=== PATIENT | male | born 1955 | race Caucasian/White ===

== ENCOUNTER 2019-09-20 12:30 | Inpatient (IN) ==
[2019-09-20 13:41] LABS: BASO# 0.12 X1000 (0.0-0.2); BASO% 1.5 % (0.0-0.8); EOS# 0.42 X1000 (0.0-0.7); EOS% 5.1 % (0.0-10.0); HEMATOCRIT 50.4 % (42.0-52.0); HEMOGLOBIN 16.6 g/dL (14.0-18.0); IMM GRAN# 0.02 X1000 (0.0-0.04); IMM GRAN% 0.2 % (0.0-0.5); LYMPH# 2.94 X1000 (1.2-3.4); LYMPH% 35.9 % (20.5-51.1); MCHC 32.9 g/dL (33-37); MCV 85.1 FL (81-99); MONO# 0.68 X1000 (0.11-0.59); MONO% 8.3 % (1.7-9.3); MPV 10.5 FL (7.4-10.4); NEUT# 4.02 X1000 (1.4-6.5); PLT 326 X1000 (130-400); RBC 5.92 XMIL (4.7-6.1); RDW 14.3 % (11.5-14.5)
--- NOTE | 2019-09-20 13:45 | Diag Imaging Result Doc PS360 ---
EXAM: CHEST-PORTABLE HISTORY: CP/SOB TECHNIQUE: Single view COMPARISON: None. FINDINGS: The lungs are well expanded. The heart is not enlarged. Mild central vascular prominence. There are no infiltrates. No effusion identified. IMPRESSION: Mild central vascular prominence. Electronically signed by Tunde Schultz 09/20/2019 1:43 PM
[2019-09-20 14:38] LABS: ALB/GLOB RATIO 1.6; ALBUMIN 4.1 g/dL (3.5-5.0); CALCIUM 8.9 mg/dL (8.8-10.2); CREATININE 1.5 mg/dL (0.7-1.2); POTASSIUM 3.9 mmol/L (3.5-5.1); TOTAL BILIRUBIN 0.48 mg/dL (0.20-1.00); TOTAL PROTEIN 6.6 g/dL (6.3-8.3)
[2019-09-20 16:09] LABS: URINE SOURCE VOIDED
[2019-09-20 16:15] LABS: BILIRUBIN URINE NEGATIVE (NEGATIVE); BLOOD URINE NEGATIVE (NEGATIVE); COLOR YELLOW; GLUCOSE URINE NEGATIVE (NEGATIVE); KETONE URINE NEGATIVE (NEGATIVE); LEUKOCYTES URINE NEGATIVE (NEGATIVE); NITRITE URINE NEGATIVE (NEGATIVE); PROTEIN URINE TRACE mg/dL (NEGATIVE); SP GRAVITY URINE 1.016; TURBIDITY URINE CLEAR (CLEAR); UROBILINOGEN URINE NORMAL (NORMAL)
[2019-09-20 16:16] LABS: UR EPITHELIAL CELLS <10 /HPF (<10); URINE BACTERIA NEGATIVE /HPF; URINE RBC <10 /HPF (<10); URINE WBC <10 /HPF (<10)
[2019-09-20] MEDS ORDERED: NITROGLYCERIN LINGUAL SPRAY SL PRN (17:40)
--- NOTE | 2019-09-20 17:55 | PROVIDER DOCUMENTATION ---
This chart was entered by Honey Strong Scribe, acting as scribe for Flaquito Lonodn MD. HPI-Chest Pain - General Chief Complaint: Chest Pain Stated Complaint: CHEST PAIN Time Seen by Provider: 09/20/19 12:46 Source: patient Allergies/Adverse Reactions: Patient Allergies Allergy/AdvReac Type Severity Reaction Status Date / Time Penicillins AdvReac Unknown Verified 09/20/19 13:12 Home Medications: Home Medication List Medication Instructions Recorded Confirmed Last Taken Type Unobtainable [Home Meds 09/20/19 09/20/19 Unknown History Unobtainable] - History of Present Illness-CP Nature of Presenting Problem: 64 y/o male presents to ED with sharp, non-radiating, sternal chest pain, weakness, nausea, headache, SOB, earaches, palpitations, and cramping abdominal pain onset 1 week ago. Pt denies pain at this time. Pt reports sometimes his pain lasts all day and sometimes just a few minutes. Pt states he was told a while ago that he had a 70% blockage in one coronary artery and 40% blockage in another, but he has not followed up. Pt reports just talking makes him feel short of breath. Pt is alert and oriented. Location: reports: central Chest Pain Radiation: reports: no radiation Quality of Pain: reports: sharp Severity in ED: moderate Onset/Duration: 1 week ago Timing: gone now, intermittent Context/Activities at Onset: reports: none Modifying Factors: improves with: nothing Associated Symptoms: reports: abdominal pain, headache, nausea, shortness of breath, weakness Nitro Today/Relief: no nitro taken today Aspirin Treatment Today: no aspirin today Prior Chest Pain/Cardiac Workup: reports: cardiac cath Similar Symptoms Previously?: No Recently Seen Here or By Another Healthcare Provider: No Review of Systems - Adult - REVIEW OF SYSTEMS - ADULT Constitutional: denies: chills, fever Eyes: reports: no symptoms reported Ears, Nose, Mouth & Throat: reports: ear pain. denies: epistaxis Cardiovascular: reports: chest pain, palpitations Respiratory: reports: shortness of breath. denies: cough Gastrointestinal: reports: abdominal pain, nausea. denies: diarrhea, vomiting Genitourinary: reports: no symptoms reported Musculoskeletal: reports: no symptoms reported Integumentary: reports: no symptoms reported Neurological: reports: headache/migraines, other (weakness). denies: dizziness/vertigo, seizure Psychiatric: reports: no symptoms reported Endocrine: reports: no symptoms reported Hematologic/Lymphatic: reports: no symptoms reported Allergic/Immunologic: reports: no symptoms reported All Other Systems: Reviewed and Negative Past History - Adult - PAST MEDICAL HISTORY-ADULT Review of Records: reports: Old Records Reviewed, Nursing Assessment Review, Medications Reviewed Major Childhood Illnesses: reports: denies history Cardiovascular: reports: CAD, HTN Neurological: reports: TIA Endocrine/Immune: reports: Diabetes Other Conditions: reports: MRSA - PRIOR SURGERIES/PROCEDURES Surgical/Procedure History: reports: orthopedic (extremity) (rotator cuff), back/neck - IMMUNIZATION STATUS Childhood Immunizations: See Nurse Assessment Flu Vaccine: See Nurse Assessment - FAMILY HISTORY Family History: reviewed, not pertinent - SOCIAL HISTORY Smoking: greater than 1 pack/day Provider spent 3-5 mins advising pt. on dangers of tobacco.: Discussed manners to quit use, and f/u contacts for add'l counseling. Substance Use: none/never Alcohol Use Frequency: never Living Situation: family Physical Exam-General - PHYSICAL EXAM-ADULT Initial Vital Signs Reviewed: Yes - CONSTITUTIONAL General Appearance: appears well, alert, no apparent distress - EYES Eyes: PERRL/EOMI, pink conjunctivae - HEAD, EARS, NOSE, MOUTH & THROAT HENMT: normocephalic/atraumatic, moist mucous membranes, normal ENT inspection - NECK Neck: non-tender, full range of motion - RESPIRATORY Respiratory: chest non-tender, lungs clear, normal breath sounds - CARDIOVASCULAR Cardiovascular: normal peripheral pulses, regular rate, rhythm - GASTROINTESTINAL (ABDOMEN) Abdominal Exam: normal bowel sounds, soft, tenderness (midline abdominal tenderness) - MUSCULOSKELETAL Back Exam: normal inspection, no CVA tenderness, no vertebral tenderness Extremity: normal range of motion, swelling (R great toe), tenderness (at the plantar base of the R great toe) - SKIN Integumentary: normal color, warm/dry - NEUROLOGIC Neurologic: grossly normal - PSYCHIATRIC Psych/Mental Status: normal mood/affect, normal thought content, normal thought process, oriented x 3 - HEART Score HEART Score: History: Slightly Suspicious HEART Score: ECG: Normal HEART Score: Age: 45-65 Years HEART Score: Risk Factors for Atherosclerotic Disease: > or = 3 Risk Factors or History of Atherosclerotic Disease HEART Score: Troponin: < or = Normal Limit Total HEART Score:: 3 Progress - PLAN OF CARE/RESULTS Progress/Plan/Lab Results: Vital Signs - 8 hr 09/20/19 12:43 09/20/19 13:04 09/20/19 13:30 Temperature 98.0 F Pulse Rate 73 64 Respiratory Rate 18 14 Blood Pressure 172/94 157/93 O2 Sat by Pulse Oximetry 96 99 09/20/19 14:00 09/20/19 15:01 09/20/19 15:31 Temperature Pulse Rate 61 60 61 Respiratory Rate 34 H 23 22 Blood Pressure 154/86 142/84 O2 Sat by Pulse Oximetry 97 97 95 Laboratory Results - last 24 hr 09/20/19 09/20/19 09/20/19 13:00 14:11 14:11 WBC 8.20 RBC 5.92 Hgb 16.6 Hct 50.4 MCV 85.1 MCH 28.0 MCHC 32.9 L RDW Std Deviation 14.3 Plt Count 326 MPV 10.5 H Immature Gran % (Auto) 0.2 Neut % (Auto) 49.0 Lymph % (Auto) 35.9 [place] % (Auto) 8.3 Eos % (Auto) 5.1 Baso % (Auto) 1.5 H Immature Gran # (Auto) 0.02 Neut # (Auto) 4.02 Lymph # (Auto) 2.94 [place] # (Auto) 0.68 H Eos # (Auto) 0.42 Baso # (Auto) 0.12 Sodium 141 Potassium 3.9 Chloride 105 Carbon Dioxide 22 L Anion Gap 14 BUN 21 Creatinine 1.5 H Estimated GFR/1.73 m2 47 BUN/Creatinine Ratio 14 Glucose 87 Calculated Osmolality 284 Calcium 8.9 Total Bilirubin 0.48 AST 13 ALT 16 Alkaline Phosphatase 112 Troponin T < 0.010 Xji-Q-Vumywclojnt Pept Total Protein 6.6 Albumin 4.1 Globulin 2.5 Albumin/Globulin Ratio 1.6 Amylase 59 Lipase 51 Urine Source Urine Color Urine Turbidity Urine pH Ur Specific [place] Urine Protein Ur Glucose (Stick) Ur Ketones (Stick) Urine Blood Urine Nitrite Urine Bilirubin Urobilinogen Dipstick Urine Leukocytes Urine WBC (Auto) Urine RBC (Auto) U Epithel Cells (Auto) Urine Bacteria (Auto) 09/20/19 09/20/19 09/20/19 14:11 15:40 16:17 WBC RBC Hgb Hct MCV MCH MCHC RDW Std Deviation Plt Count MPV Immature Gran % (Auto) Neut % (Auto) Lymph % (Auto) [place] % (Auto) Eos % (Auto) Baso % (Auto) Immature Gran # (Auto) Neut # (Auto) Lymph # (Auto) [place] # (Auto) Eos # (Auto) Baso # (Auto) Sodium Potassium Chloride Carbon Dioxide Anion Gap BUN Creatinine Estimated GFR/1.73 m2 BUN/Creatinine Ratio Glucose Calculated Osmolality Calcium Total Bilirubin AST ALT Alkaline Phosphatase Troponin T < 0.010 Cqj-M-Acjykkattpz Pept 90 Total Protein Albumin Globulin Albumin/Globulin Ratio Amylase Lipase Urine Source VOIDED Urine Color YELLOW Urine Turbidity CLEAR Urine pH 6.0 Ur Specific [place] 1.016 Urine Protein TRACE A Ur Glucose (Stick) NEGATIVE Ur Ketones (Stick) NEGATIVE Urine Blood NEGATIVE Urine Nitrite NEGATIVE Urine Bilirubin NEGATIVE Urobilinogen Dipstick NORMAL Urine Leukocytes NEGATIVE Urine WBC (Auto) <10 Urine RBC (Auto) <10 U Epithel Cells (Auto) <10 Urine Bacteria (Auto) NEGATIVE Orders Category Date Time Status Nursing- Obtain EKG ONCE Care 09/20/19 13:16 Active CHEST-PORTABLE [RAD] Stat Exams 09/20/19 13:16 Completed AMYLASE [CHEM] Stat Lab 09/20/19 14:11 Completed CBC WITH DIFF [HEME] Stat Lab 09/20/19 13:00 Completed COMPREHENSIVE METABOLIC PANEL [CHEM] Stat Lab 09/20/19 14:11 Completed LIPASE [CHEM] Stat Lab 09/20/19 14:11 Completed PRO B-NATRIURETIC PEPTIDE Stat Lab 09/20/19 14:11 Completed TROPONIN T Stat Lab 09/20/19 14:11 Completed TROPONIN T Stat Lab 09/20/19 16:17 Completed URINALYSIS [URINALYSIS] Stat Lab 09/20/19 15:40 Completed Nitroglycerin [Nitroglycerin [place]] Med 09/20/19 17:40 Active 1 gm SL Q5M PRN PRN EKG [EKG] Stat Ther 09/20/19 13:16 Ordered EKG [EKG] Stat Ther 09/20/19 16:06 Ordered Transfer/Admit Order [TRANSFER] Routine Transfer 09/20/19 17:35 Ordered Result Diagrams: 09/20/19 13:00 09/20/19 14:11 - EKG 1 Time of EKG reading by physician:: 12:41 EKG Read and Signed by:: Flaquito London EKG Interpretation (*Must complete 3 of following elements*): Normal Rate: 68 Rhythm: NSR [place]: normal QRS: normal RI Interval: normal ST Wave: normal 2 Time of EKG reading by physician:: 16:59 EKG Read and Signed by:: Flaquito London EKG Interpretation (*Must complete 3 of following elements*): Normal Rate: 65 Rhythm: NSR Harvey: normal QRS: normal RI Interval: normal ST Wave: normal - XRAY 1 XRAY Study: Chest Impression: See EMR Report ([facility] - [address], [address], [place] [address] [facility] - [address] [place] [address] Department of Imaging Patient: MARY ZAVALETA Date: 09/20/19MR#: [id number] : 1955DM Status: PRE ERAcct#: [id number] Age/Sex: 64/MRoom/Bed: Loc: ED Ordering Physician: Flaquito London MD Family Physician: None,PCP Reason for Procedure: CP/SOB Signed EXAM: CHEST-PORTABLE HISTORY: CP/SOB TECHNIQUE: Single view COMPARISON: None. FINDINGS: The lungs are well expanded. The heart is not enlarged. Mild central vascular prominence. There are no infiltrates. No effusion identified. IMPRESSION: Mild central vascular prominence. Electronically signed by Tunde Schultz 09/20/2019 1:43 PM 09/20/19 1343 Interpreting Physician: Tunde Schultz MD Dictated Date/Time: 09/20/19 1342 cc: Flaquito London MD; None,PCP) - CONSULTS/PCP/HOSPITALIST Notification #1 *Consult/PCP/Hospitalist*: Dr. Pink Time Discussed: 17:32 Reason/Comments: Chest pain Consult Disposition: Admit Departure - Departure Date of Disposition Decision: 09/20/19 Time of Disposition Decision: 17:15 DIAGNOSIS: Tobacco use, Dyspnea on minimal exertion Chest pain Qualifiers: Chest pain type: unspecified Qualified Code(s): R07.9 - Chest pain, unspecified Disposition: ADMITTED INPATIENT 09 Certified Medical Emergency: Emergent Condition: Stable Referrals and Follow-Ups: None,PCP [Primary Care Provider] - Discharge Education: Steps to Quit Smoking, [id number]-cb-Buju - Critical Care Note This patient required my direct & personal management of CC.: No Attestation - Physician/ RUMA Attestation Patient care was provided by Advanced Practice Provider:: No The physician spent face to face time with patient:: Yes Advanced Practice Provider documentation review:: Supervising physician onsite and consulted in the evaluation and care of this patient. The physician did have a face to face encounter with the patient. This chart was documented by the indicated scribe, (Honey Strong, Juanis) and accurately reflects the services I performed and decisions made by me, Flaquito London MD, as attested by the provider's signature.
[2019-09-20] MEDS ORDERED: NITROGLYCERIN SL PRN (18:00)
[2019-09-20 18:43] LABS: HEMOGLOBIN A1C 7.3 % (4.8-6.0)
[2019-09-20] MEDS ORDERED: DUONEB (A & A) INH PRN (18:52)
[2019-09-20] MEDS ORDERED: TYLENOL PO PRN (18:52)
[2019-09-20] MEDS ORDERED: LOVENOX SUBQ SCH (18:52)
[2019-09-20] MEDS ORDERED: ZOFRAN IV PRN (18:52)
[2019-09-20] MEDS: NS 1,000 ML IV SCH (19:03)
--- NOTE | 2019-09-20 21:34 | Diag Imaging Result Doc PS360 ---
EXAM: CT THORAX W/O CONTRAST HISTORY: chest pain, sob TECHNIQUE: CT chest without contrast COMPARISON: None. FINDINGS: No cardiomegaly. No pleural effusions. No aortic aneurysm. Small mediastinal nodes. Moderate emphysema. Mild vascular distention. No consolidation. No bronchiectasis. Right upper lobe calcified granuloma. Tiny pleural-based nodular density laterally in the right lung on image 70. IMPRESSION: 1.Emphysema 2.Mild vascular prominence This exam was performed using automated exposure control, adjustment of mA or kV according to patient size, and/or use of iterative reconstruction technique. Electronically signed by Tunde Schultz 09/20/2019 9:32 PM
[2019-09-20] MEDS: HUMALOG SUBQ SCH (21:52)
--- NOTE | 2019-09-20 22:59 | HISTORY AND PHYSICAL ---
PRIMARY CARE PHYSICIAN: None. CHIEF COMPLAINT: Chest pressure, chest pain. HISTORY OF PRESENT ILLNESS: This is a 64-year-old male with a past medical history of hypertension, hyperlipidemia and a smoker, who presented to the emergency department complaining of 2-week history of chest pain, chest pressure. The patient reports that the sensation is suprasternal and sometimes he describes a pain that lasts many minutes and sometimes he describes pressure, like somebody is sitting over his chest. He did realize of any aggravating or alleviating factors. He denies any diaphoreses or any nausea, vomiting. He denies any paroxysmal nocturnal dyspnea or orthopnea. The patient reports that the sensation was getting more progressively worse today, so that is why he decided to come to the emergency department. It is important to remark that 3 years ago he was seen in [facility] in the ER, apparently, he had a CT angiogram and he was told that he has blockage of 70% in one coronary artery and 40% of another one and he was recommended to have a followup, but because of lack of insurance, he did not have any follow up. He reports also that when he talks he becomes more and more short of breath. PAST MEDICAL HISTORY: 1. Hypertension. 2. Diabetes mellitus type 2. 3. Coronary artery disease with some blockages evaluated 3 years ago in [facility] on 1 visit. 4. History of a stroke. PAST SURGICAL HISTORY: 1. Rotator cuff repair 30 years ago. 2. Back surgery in 2013 that has been done in [facility]. Dr. Carrington was his Neurosurgeon, he developed staph infection and he ended up having 3 months of antibiotics, apparently, he was given vancomycin and he was on some oral antibiotics as well but as of now he is not on any antibiotics. ALLERGIES: Patient is allergic to penicillin. SOCIAL HISTORY: He smokes 1 pack per day since he was 15, so approximately 49 years smoking. He denies using any drugs or drinking any alcohol. He lives with his . FAMILY HISTORY: Positive for emphysema in her mother. Patient dad had a heart attack in his early 60s, both parents are . PHYSICAL EXAMINATION: VITAL SIGNS: Temperature 98 degrees, heart rate 73, respiratory rate 18, blood pressure 157/92, O2 saturation 96% on room air. GENERAL: This is a 64-year-old male, lying in bed, in no acute distress. HEENT: Head is normocephalic, atraumatic. Pupils equal, round, reactive to light and accommodation. Anicteric sclerae. Pale conjunctivae. Mucous membranes moist. NECK: No JVD noted. No carotid bruits. No lymphadenopathy. No thyromegaly. CARDIOVASCULAR: S1, S2 heard. No murmurs, gallops, or rubs. Regular rate and rhythm. RESPIRATORY: Slightly decreased breath sounds, mostly noted in both pulmonary bases but patient is not using any accessory muscles or having work of breathing. ABDOMEN: Soft, nontender to palpation. Bowel sounds present. No organomegaly. EXTREMITIES: No clubbing, cyanosis, or edema. Peripheral pulses present in both legs. NEUROLOGICAL: The patient alert oriented x3. Moves 4 extremities. LABORATORY DATA: CBC is completely unremarkable. BMP reveals creatinine 1.5. Troponins have been checked twice with 2-hour interval and those are negative completely. ASSESSMENT AND PLAN: 1. Chest pain. Because of risk factors, hypertension, diabetes in long history of smoking, we are going to admit this patient to the hospital. We will do an echocardiogram. We are going to do a Lexiscan stress on rest and we will see what it shows. If we find an abnormality on those tests, we will consult Cardiology. 2. Diabetes mellitus type 2. We are going to check hemoglobin A1c. Will do sliding scale insulin and Accu-Chek before meals and also bedtime.. 3. Disposition: We will continue to monitor this patient closely. cc: Jey Núñez MD
--- NOTE | 2019-09-21 05:56 | EKG Report ---
Test Performed on : 09/20/2019 4:50:37 PM Test Reason : CP Blood Pressure : / mmHG Vent. Rate : 065 BPM Atrial Rate : 065 BPM P-R Int : 146 ms QRS Dur : 100 ms QT Int : 420 ms P-R-T Axes : 049 015 030 degrees QTc Int : 436 ms Normal sinus rhythm. Normal ECG When compared with ECG of 20-SEP-2019 12:41, (Unconfirmed) No significant change was found Unconfirmed Result
[2019-09-21 06:59] LABS: BASO% 1.5 % (0.0-0.8); EOS# 0.48 X1000 (0.0-0.7); EOS% 7.3 % (0.0-10.0); HEMATOCRIT 48.5 % (42.0-52.0); HEMOGLOBIN 15.6 g/dL (14.0-18.0); IMM GRAN# 0.02 X1000 (0.0-0.04); IMM GRAN% 0.3 % (0.0-0.5); LYMPH# 2.49 X1000 (1.2-3.4); LYMPH% 38.1 % (20.5-51.1); MCH 27.7 PG (27-31); MCHC 32.2 g/dL (33-37); MCV 86.1 FL (81-99); MONO# 0.47 X1000 (0.11-0.59); MONO% 7.2 % (1.7-9.3); MPV 10.7 FL (7.4-10.4); NEUT# 2.98 X1000 (1.4-6.5); NEUT% 45.6 % (42.2-75.2); PLT 318 X1000 (130-400); RBC 5.63 XMIL (4.7-6.1); RDW 14.2 % (11.5-14.5); WBC 6.54 X1000 (4.8-10.8)
--- NOTE | 2019-09-21 07:08 | EKG Report ---
Test Performed on : 09/21/2019 07:03:01 AM Test Reason : chest pain Blood Pressure : / mmHG Vent. Rate : 060 BPM Atrial Rate : 060 BPM P-R Int : 158 ms QRS Dur : 104 ms QT Int : 424 ms P-R-T Axes : 035 020 023 degrees QTc Int : 424 ms Normal sinus rhythm. Normal ECG When compared with ECG of 20-SEP-2019 16:50, (Unconfirmed) No significant change was found Confirmed by Jarad ALMAGUER, Edison Stephens ([id number]) on 09/25/2019 9:25:04 AM
--- NOTE | 2019-09-21 07:10 | EKG Report ---
Test Performed on : 09/20/2019 12:41:32 PM Test Reason : CP/SOB Blood Pressure : / mmHG Vent. Rate : 068 BPM Atrial Rate : 068 BPM P-R Int : 132 ms QRS Dur : 104 ms QT Int : 396 ms P-R-T Axes : 019 020 028 degrees QTc Int : 421 ms Normal sinus rhythm. Normal ECG No previous ECGs available Unconfirmed Result
[2019-09-21 07:25] LABS: CHOLESTEROL 172 mg/dL (0-200); HDL 28 mg/dL (35-55); LDL 111 mg/dL; TRIGLYCERIDES 163 mg/dL (39-160); VLDL 33 mg/dL
[2019-09-21 07:26] LABS: CALCIUM 8.5 mg/dL (8.8-10.2); CREATININE 1.3 mg/dL (0.7-1.2)
[2019-09-21] MEDS: HUMALOG SUBQ SCH ×2 (07:36→11:06)
[2019-09-21] MEDS ORDERED: LEXISCAN ONE (08:47)
[2019-09-21] MEDS: NS 1,000 ML IV SCH ×2 (11:06→11:21)
[2019-09-21 11:30] VITALS: BP 170/80
[2019-09-21] MEDS ORDERED: HYDROCHLOROTHIAZIDE PO SCH (12:15)
[2019-09-21] MEDS ORDERED: PRINIVIL PO SCH (12:15)
--- NOTE | 2019-09-21 13:54 | ECHO REPORT ---
ORDER DATE: 09/20/2019 INDICATION FOR THE PROCEDURE: Chest pain. FINDINGS: 1. The right atrium appears normal in size. 2. Mild tricuspid regurgitation. 3. Normal RV size and systolic function. 4. No significant pulmonic insufficiency. 5. Normal left atrial size with a volume index of 25. 6. No mitral valve prolapse. Mild mitral regurgitation. 7. Normal LV size, end-diastolic dimension of 4.2 cm. Mild to moderate left ventricular hypertrophy with a posterior end-interventricular septal wall thickness 1.4 cm each. Normal LV systolic function. Estimated ejection fraction is 60% to 65% with normal wall motion. 8. Aortic valve opens well. No evidence of stenosis or insufficiency. 9. Aorta appears normal in visualized segments. 10. No pericardial effusion is seen. cc: MD Jey Stokes MD
--- NOTE | 2019-09-21 14:25 | Diag Imaging Result Document ---
PROCEDURE NAME: MYOCARDIAL PERF SCAN, STR/REST - 09/21/2019 INDICATIONS: Chest pain. PROCEDURES PERFORMED: 1. Lexiscan stress. 2. One-day stress rest myocardial perfusion imaging (rest dose 12.3 millicuries, stress dose 36.2 mCi of technetium-99m sestamibi). FINDINGS: LEXISCAN STRESS RESULTS: 1. The baseline EKG shows sinus rhythm. 2. Lexiscan stress not demonstrate any clear evidence of ischemic related EKG changes or significant arrhythmias. PERFUSION IMAGING RESULTS: 1. No evidence of abnormal extracardiac uptake. 2. TID ratio is 1.17. On review of splash images, there does not appear to be any clear evidence of transient ischemic dilatation. 3. Perfusion imaging demonstrates what appears to be normal homogeneous uptake of radiotracer throughout the myocardial segments. There is some suggestion of mild soft tissue attenuation artifact, but again no evidence of ischemic changes. 4. Normal ejection fraction of 61%. End-diastolic volume 126 and end-systolic volume of 49. Normal wall motion is noted. cc: MD Jey Stokes MD
--- NOTE | 2019-09-24 17:18 | DISCHARGE SUMMARY ---
ADMISSION DATE: 09/20/2019 DISCHARGE DATE: 09/21/2019 DISCHARGE DIAGNOSES: 1. Chest pain, resolved. 2. Acute coronary syndrome ruled out. 3. Diabetes mellitus type 2. 4. Coronary artery disease. 5. History of stroke. PROCEDURES: 1. Chest x-ray done on admission showed mild central vascular prominence. 2. Chest CT showed emphysema and mild vascular prominence. 3. Echocardiogram Doppler showed ejection fraction of 60 to 65%. No pericardial effusion is seen. Aorta appears normal in visualized segments. 4. Myocardial perfusion scan nuclear medicine showed no evidence of abnormal extracardiac uptake. Perfusion imaging demonstrate what appears to be normal homogeneous uptake of radiotracer throughout the myocardial segments and normal ejection fraction of 61%. HOSPITAL COURSE: This is a 64-year-old male with a past medical history of hypertension, hyperlipidemia who presented to the emergency department complaining of chest pain substernal that was bothering him for probably 1 to 2 weeks but getting worse during the last 24 hours. He describes the pain like somebody was sitting on the chest, so we decided to admit this patient to the hospital for chest pain workup, that resulted as above. The patient clinically is not complaining of any chest pain, so the patient is going to be discharged in stable condition. DISCHARGE PHYSICAL EXAMINATION: Vital signs: Temperature 98.0 degrees, heart rate 62, respiratory rate 18, blood pressure 170/80, O2 saturation 98% on room air. General: This is a 64- year-old male, lying in bed, in no acute distress. Cardiovascular: S1, S2 heard. No murmurs, gallops, or rubs. Regular rate and rhythm. Respiratory: Clear bilaterally to auscultation. No work of breathing or using accessory muscles. Abdomen: Soft. Nontender to palpation. Bowel sounds present. No organomegaly. Extremities: No clubbing, cyanosis, or edema. Peripheral pulses present in both legs. Neurological: The patient is alert and oriented x3. Moves 4 extremities. DISCHARGE DISPOSITION: Home to self-care. DISCHARGE MEDICATIONS: 1. Aspirin 81 mg 1 tablet p.o. daily. 2. Lisinopril 20 mg 1 tablet p.o. daily. 3. Hydrochlorothiazide 25 mg 1 tablet p.o. daily. 4. Gabapentin 1 tablet p.o. 3 times per day. 5. Lactulose twice daily for constipation. 6. Metformin 500 mg 1 tablet p.o. daily. cc: Jey Núñez MD
== END 2019-09-21 16:00 | disposition home or self-care (01) ==
LOC: ED 12:30 → 4N 12:30 → OBSVTOIN 17:43
PROVIDERS: ATTEND Internal Medicine